=== PATIENT | female | born 1990 | race Caucasian/White ===

== ENCOUNTER 2016-09-30 18:19 | Emergency (ER) | payer BC ==
[2016-09-30 18:27] VITALS: RESP 18; TEMP 98.4
[2016-09-30] MEDS ORDERED: SODIUM CHLORIDE 0.9% 1,000 ML IV ONE (18:41)
[2016-09-30] MEDS ORDERED: LORazepam 2 MG/ML SYRINGE IV STA (18:42)
--- NOTE | 2016-09-30 18:46 | ED ---
Anxiety HPI - General Chief Complaint: Anxiety Stated Complaint: Hypertension Time Seen by Provider: 09/30/16 18:27 Source: EMS, RN notes reviewed Mode of arrival: EMS - History of Present Illness Initial Comments: Patient's 25-year-old female presents emergency room for evaluation of anxiety. Patient states that she drank about a pint of rum last night. Patient states was feeling off today and thought she was just hung over. Patient states while she was at dinner she had something spicy to eat and her heart began racing. Patient states that she went over to her work which is across the street and took her blood pressure and it read 156/115. Patient states she's never had blood pressure this high before. Patient states the high blood pressure gave her more anxiety and she began having chest pain. Patient states she called EMS. Patient states that the chest pain has subsided since it started. Patient states she thinks she is having anxiety attack. Patient states never had this happen to her before. Patient denies history of high blood pressure or heart problems. Patient states she felt short of breath during the incident but has subsided since. Patient denies nausea or vomiting. - Related Data Home Medications: Home Medications Medication Instructions Recorded Confirmed Loratadine [Claritin] 10 mg PO DAILY 09/30/16 09/30/16 Norgestimate-Ethinyl Estradiol 1 tab PO DAILY 09/30/16 09/30/16 [Sprintec 28 Day Tablet] Pantoprazole Sodium [Protonix] 20 mg PO DAILY 09/30/16 09/30/16 Previous Rx's Medication Instructions Recorded Azithromycin [Zithromax Z-pack] 250 mg PO DIRECTED #6 tab 09/30/16 Allergies/Adverse Reactions: Allergies Allergy/AdvReac Type Severity Reaction Status Date / Time No Known Allergies Allergy Verified 09/30/16 18:56 Review of Systems ROS Statement: Those systems with pertinent positive or pertinent negative responses have been documented in the HPI. ROS Other: All systems not noted in ROS Statement are negative. Past Medical History Past Medical History: No Reported History History of Any Multi-Drug Resistant Organisms: None Reported Past Surgical History: No Surgical Hx Reported Past Psychological History: Anxiety, Depression Smoking Status: Former smoker Past Alcohol Use History: Heavy Past Drug Use History: None Reported General Exam - General Exam Comments Initial Comments: Sitting in exam room, tearful but no acute distress. Limitations: no limitations General appearance: alert, in no apparent distress Head exam: Present: atraumatic, normocephalic, normal inspection Eye exam: Present: normal appearance Pupils: Present: normal accommodation ENT exam: Present: normal exam Neck exam: Present: normal inspection Respiratory exam: Present: normal lung sounds bilaterally. Absent: respiratory distress Cardiovascular Exam: Present: normal rhythm, tachycardia, normal heart sounds Extremities exam: Present: normal inspection Back exam: Present: normal inspection Neurological exam: Present: alert, oriented X3, CN II-XII intact, normal gait Psychiatric exam: Present: normal affect Skin exam: Present: warm, dry, intact, normal color. Absent: rash Course Vital Signs 09/30/16 09/30/16 18:21 20:55 Temperature 98.4 F Pulse Rate 109 H 78 Respiratory 18 18 Rate Blood Pressure 176/92 166/84 O2 Sat by Pulse 100 100 Oximetry Medical Decision Making - Medical Decision Making Patient is a 25-year-old female presents emergency room for evaluation of anxiety. Labs showed no acute findings. Chest x-ray incidentally noted for right lower lobe infiltrate. Patient be placed on antibiotics. Patient states she understands everything that was discussed with her. Return parameters discussed. Case discussed with Dr. Rebolledo. - Lab Data Result diagrams: 09/30/16 19:30 09/30/16 19:30 Lab Results 09/30/16 09/30/16 09/30/16 Range/Units 19:30 19:30 19:30 WBC 11.7 H (3.8-10.6) k/uL RBC 4.39 (3.80-5.40) m/uL Hgb 13.7 (11.4-16.0) gm/dL Hct 40.3 (34.0-46.0) % MCV 91.9 (80.0-100.0) fL MCH 31.2 (25.0-35.0) pg MCHC 33.9 (31.0-37.0) g/dL RDW 12.8 (11.5-15.5) % Plt Count 330 (150-450) k/uL Neutrophils % 78 % Lymphocytes % 16 % Monocytes % 4 % Eosinophils % 1 % Basophils % 1 % Neutrophils # 9.1 H (1.3-7.7) k/uL Lymphocytes # 1.9 (1.0-4.8) k/uL Monocytes # 0.4 (0-1.0) k/uL Eosinophils # 0.1 (0-0.7) k/uL Basophils # 0.1 (0-0.2) k/uL Sodium 142 (137-145) mmol/L Potassium 4.4 (3.5-5.1) mmol/L Chloride 105 (98-107) mmol/L Carbon Dioxide 23 (22-30) mmol/L Anion Gap 14 mmol/L BUN 14 (7-17) mg/dL Creatinine 0.65 (0.52-1.04) mg/dL Est GFR (MDRD) Af Amer >60 (>60 ml/min/1.73 sqM) Est GFR (MDRD) Non-Af >60 (>60 ml/min/1.73 sqM) Glucose 98 (74-99) mg/dL Calcium 9.5 (8.4-10.2) mg/dL Magnesium 1.4 L (1.6-2.3) mg/dL Total Bilirubin 0.5 (0.2-1.3) mg/dL AST 34 (14-36) U/L ALT 31 (9-52) U/L Alkaline Phosphatase 94 (38-126) U/L Total Protein 7.3 (6.3-8.2) g/dL Albumin 4.3 (3.5-5.0) g/dL Urine Color Urine Appearance (Clear) Urine pH (5.0-8.0) Ur Specific [place] (1.001-1.035) Urine Protein (Negative) Urine Glucose (UA) (Negative) Urine Ketones (Negative) Urine Blood (Negative) Urine Nitrate (Negative) Urine Bilirubin (Negative) Urine Urobilinogen (<2.0) mg/dL Ur Leukocyte Esterase (Negative) Urine HCG, Qual Not Detected (Not Detectd) 09/30/16 Range/Units 19:30 WBC (3.8-10.6) k/uL RBC (3.80-5.40) m/uL Hgb (11.4-16.0) gm/dL Hct (34.0-46.0) % MCV (80.0-100.0) fL MCH (25.0-35.0) pg MCHC (31.0-37.0) g/dL RDW (11.5-15.5) % Plt Count (150-450) k/uL Neutrophils % % Lymphocytes % % Monocytes % % Eosinophils % % Basophils % % Neutrophils # (1.3-7.7) k/uL Lymphocytes # (1.0-4.8) k/uL Monocytes # (0-1.0) k/uL Eosinophils # (0-0.7) k/uL Basophils # (0-0.2) k/uL Sodium (137-145) mmol/L Potassium (3.5-5.1) mmol/L Chloride (98-107) mmol/L Carbon Dioxide (22-30) mmol/L Anion Gap mmol/L BUN (7-17) mg/dL Creatinine (0.52-1.04) mg/dL Est GFR (MDRD) Af Amer (>60 ml/min/1.73 sqM) Est GFR (MDRD) Non-Af (>60 ml/min/1.73 sqM) Glucose (74-99) mg/dL Calcium (8.4-10.2) mg/dL Magnesium (1.6-2.3) mg/dL Total Bilirubin (0.2-1.3) mg/dL AST (14-36) U/L ALT (9-52) U/L Alkaline Phosphatase (38-126) U/L Total Protein (6.3-8.2) g/dL Albumin (3.5-5.0) g/dL Urine Color Light Yellow Urine Appearance Clear (Clear) Urine pH 6.0 (5.0-8.0) Ur Specific [place] 1.008 (1.001-1.035) Urine Protein Negative (Negative) Urine Glucose (UA) Negative (Negative) Urine Ketones Negative (Negative) Urine Blood Negative (Negative) Urine Nitrate Negative (Negative) Urine Bilirubin Negative (Negative) Urine Urobilinogen <2.0 (<2.0) mg/dL Ur Leukocyte Esterase Negative (Negative) Urine HCG, Qual (Not Detectd) 10/01/16 04:39. Normal sinus rhythm, ventricular rate 96 bpm, [place] interval 118 ms, QRS duration 74 ms, QT/QTc 326/411 ms, no ST elevations - Radiology Data Radiology results: report reviewed, image reviewed Disposition Clinical Impression: Acute anxiety, Right lower lobe pneumonia Disposition: HOME SELF-CARE Condition: Good Instructions: Generalized Anxiety Disorder (ED) Additional Instructions: Take antibiotics as directed. Please follow up with primary care provider in 24 -48 hours for reevaluation. If any new symptom arises or symptoms worsen, return to ER as soon as possible. Prescriptions: Azithromycin [Zithromax Z-pack] 250 mg PO DIRECTED #6 tab Referrals: Aj Chatman MD [Primary Care Provider] - 1-2 days Time of Disposition: 20:40
[2016-09-30 19:47] LABS: Appearance,Urine Clear (Clear); Bilirubin,Urine Negative (Negative); Glucose,Urine (UA) Negative (Negative); Ketones,Urine Negative (Negative); Leukocyte Esterase,Urine Negative (Negative); Nitrite,Urine Negative (Negative); Protein,Urine Negative (Negative); Specific Gravity,Urine 1.008 (1.001-1.035); UA Billing (MACRO vs. MICRO) CHEM; Urobilinogen,Urine <2.0 mg/dL (<2.0)
[2016-09-30 19:54] LABS: ALT 31 U/L (9-52); AST 34 U/L (14-36); Alkaline Phosphatase 94 U/L (38-126); Anion Gap 14 mmol/L; Blood Urea Nitrogen 14 mg/dL (7-17); Calcium 9.5 mg/dL (8.4-10.2); Carbon Dioxide 23 mmol/L (22-30); Chloride 105 mmol/L (98-107); Glucose 98 mg/dL (74-99); Magnesium 1.4 mg/dL (1.6-2.3); Non-African American GFR(MDRD) >60 (>60 ml/min/1.73 sqM); Potassium 4.4 mmol/L (3.5-5.1); Sodium 142 mmol/L (137-145); Total Bilirubin 0.5 mg/dL (0.2-1.3); Total Protein 7.3 g/dL (6.3-8.2)
[2016-09-30 19:56] LABS: Basophils # (A) 0.1 k/uL (0-0.2); Basophils % (A) 1 %; CH 30.9; CHCM 33.8; Eosinophils # (A) 0.1 k/uL (0-0.7); Eosinophils % (A) 1 %; HCT 40.3 % (34.0-46.0); HDW 2.06; HGB 13.7 gm/dL (11.4-16.0); Luc # (Auto) 0.14; Luc % (Auto) 1; Lymphocytes # (A) 1.9 k/uL (1.0-4.8); Lymphocytes % (A) 16 %; MCH 31.2 pg (25.0-35.0); MCHC 33.9 g/dL (31.0-37.0); MCV 91.9 fL (80.0-100.0); Mean Platelet Volume 6.9; Monocytes # (A) 0.4 k/uL (0-1.0); Monocytes % (A) 4 %; Neutrophils # (A) 9.1 k/uL (1.3-7.7); Neutrophils % (A) 78 %; RBC 4.39 m/uL (3.80-5.40); RDW 12.8 % (11.5-15.5); WBC 11.7 k/uL (3.8-10.6); WBC (Perox) 12.06
--- NOTE | 2016-09-30 20:16 | XR ---
EXAMINATION TYPE: XR chest 2V DATE OF EXAM: 09/30/2016 8:08 PM COMPARISON: NONE HISTORY: Pain TECHNIQUE: Frontal and lateral views of the chest are obtained. FINDINGS: Faint opacities are noted in the right lower lobe of lung and are suspicious for mild acti ve lung infiltrates. The cardiac silhouette size is within normal limits. The osseous structures a re intact. IMPRESSION: Suspected mild active infiltrates in the right lower lobe of lung.
[2016-09-30 20:59] VITALS: BP 166/84; PULSE 78
== END 2016-09-30 20:55 | disposition home or self-care (01) ==
LOC: EC 18:19
DX: F41.9 Anxiety disorder, unspecified (principal); J18.9 Pneumonia, unspecified organism; Z79.3 Long term (current) use of hormonal contraceptives; Z87.891 Personal history of nicotine dependence; Z79.899 Other long term (current) drug therapy
CPT/HCPCS: 96374; 99285; 36415; 93005; 80053; 83735; 85025; 81003; 81025; 71020; J2060

== ENCOUNTER 2018-12-15 12:58 | Inpatient (IN) | payer BC, OTHER ==
[2018-12-15] MEDS ORDERED: LORazepam 2 MG/ML INJ IV STA (13:24)
[2018-12-15] MEDS ORDERED: SODIUM CHLORIDE 0.9% 1,000 ML IV STA (13:24)
--- NOTE | 2018-12-15 13:30 | ED ---
General Adult HPI - General Source: patient, RN notes reviewed Mode of arrival: ambulatory Limitations: no limitations <Salvatore Jang - Last Filed: 12/15/18 15:33> <Gato Ryan - Last Filed: 12/15/18 15:53> - General Chief complaint: Arrhythmia/Palpitations Stated complaint: palpitations Time Seen by Provider: 12/15/18 13:19 - History of Present Illness Initial comments: Patient is a 28-year-old female with significant past medical history for hypertension, alcoholism, presented to the emergency room today with a chief complaint of wanting to detox from alcohol. She does admit that she's had some palpitations. States her last drink was approximately 8 PM last night. She states she did follow-up the family physician today was advised come here to the emergency room. Patient does admit to feeling nauseated. Admits to heart palpitations. States feels like her heart racing. Patient does admit that she noticed her blood pressures fluctuated today. She has been taking her blood pressure medicine. She states to Catapres earlier today along with her metoprolol. Patient denies any recent fever, chills, shortness of breath, chest pain, back pain, abdominal pain, vomiting, numbness or tingling, headaches or visual changes, or any other complaints. (Salvatore Jang) - Related Data Home Medications Medication Instructions Recorded Confirmed Norgestimate-Ethinyl Estradiol 1 tab PO DAILY 09/30/16 12/15/18 [Sprintec 28 Day Tablet] Hydrochlorothiazide [Hydrodiuril] 25 mg PO DAILY 12/15/18 12/15/18 Metoprolol Succinate (ER) [Toprol 50 mg PO BID 12/15/18 12/15/18 Xl] Sertraline [Zoloft] 100 mg PO DAILY 12/15/18 12/15/18 cloNIDine HCL [Catapres] 0.1 mg PO BID 12/15/18 12/15/18 Allergies Allergy/AdvReac Type Severity Reaction Status Date / Time No Known Allergies Allergy Verified 12/15/18 13:38 Review of Systems ROS Other: All systems not noted in ROS Statement are negative. <Salvatore Jang - Last Filed: 12/15/18 15:33> ROS Other: All systems not noted in ROS Statement are negative. <Gato Ryan - Last Filed: 12/15/18 15:53> ROS Statement: Those systems with pertinent positive or pertinent negative responses have been documented in the HPI. Past Medical History Past Medical History: No Reported History History of Any Multi-Drug Resistant Organisms: None Reported Past Surgical History: No Surgical Hx Reported Past Psychological History: Anxiety, Depression Smoking Status: Former smoker Past Alcohol Use History: Daily, Heavy Past Drug Use History: None Reported <Salvatore Jang - Last Filed: 12/15/18 15:33> General Exam Limitations: no limitations <aSlvatore Jang - Last Filed: 12/15/18 15:33> - General Exam Comments Initial Comments: General: The patient is awake and alert, in no distress, and does not appear acutely ill. Eye: There is normal conjunctiva bilaterally. No signs of icterus. Ears, nose, mouth and throat: There are moist mucous membranes and no oral lesions. Neck: The neck is supple, there is no tenderness or JVD. Cardiovascular: There is a regular rate and rhythm. No murmur, rub or gallop is appreciated. Respiratory: Lungs are clear to auscultation, respirations are non-labored, breath sounds are equal. No wheezes, stridor, rales, or rhonchi. Musculoskeletal: Normal ROM, no tenderness. Strength 5/5. Sensation intact. Pulses equal bilaterally 2+. Neurological: A&O x 3. CN II-XII intact, There are no obvious motor or sensory deficits. Coordination appears grossly intact. Speech is normal. Skin: Skin is warm and dry and no rashes or lesions are noted. Psychiatric: Cooperative, appropriate mood & affect, normal judgment. (Salvatore Jang) Course <Gato Ryan - Last Filed: 12/15/18 15:53> Vital Signs 12/15/18 13:06 Temperature 98.5 F Pulse Rate 111 H Respiratory 18 Rate Blood Pressure 154/99 O2 Sat by Pulse 98 Oximetry - Reevaluation(s) Reevaluation #1: 12/15/18 15:53 Case was discussed with Dr. Redding, who will admit covering for Dr. Beckham. (Gato Ryan) EKG Findings - EKG Comments: EKG Findings:: EKG performed it's 1324: Shows normal sinus rhythm at 99 bpm. [place] interval 152. QRS 94. QT/QTC 348/446. No acute ST changes. <Salvatore Jang - Last Filed: 12/15/18 15:33> Medical Decision Making - Lab Data Result diagrams: 12/15/18 13:45 12/15/18 13:45 <Salvatore Jang - Last Filed: 12/15/18 15:33> - Lab Data Result diagrams: 12/15/18 13:45 12/15/18 13:45 <Gato Ryan - Last Filed: 12/15/18 15:53> - Medical Decision Making Patient reexamined at this time shows no signs of distress. Patient resting comfortably. Patient's serum alcohol less than 10. Patient does admit last week was last night. Patient blood pressure has improved here in emergency room. She initially was worried about this. Patient was given Ativan here in the emergency room is feeling better at this time. Patient's liver enzymes are mildly elevated. Her magnesium was low at 1.2 was getting 2 g of magnesium started here in emergency room. Case discussed with attending physician Dr. Ryan who did discuss case with patient's primary doctor Dr. Beckham who did see the patient in the office today and sent her here to the emergency room. Case discussed with Dr. Redding who will admit the patient (Salvatore Jang) Case discussed with practitioner Salvatore. Chart reviewed. Case was discussed with Dr. Beckham who is familiar with this patient I would like her admitted. Dr. Redding has been paged. (Gato Ryan) - Lab Data Lab Results 12/15/18 12/15/18 12/15/18 Range/Units 13:45 13:45 13:45 WBC 8.5 (3.8-10.6) k/uL RBC 4.69 (3.80-5.40) m/uL Hgb 14.5 (11.4-16.0) gm/dL Hct 43.4 (34.0-46.0) % MCV 92.4 (80.0-100.0) fL MCH 30.8 (25.0-35.0) pg MCHC 33.4 (31.0-37.0) g/dL RDW 13.1 (11.5-15.5) % Plt Count 276 (150-450) k/uL Neutrophils % 65 % Lymphocytes % 25 % Monocytes % 4 % Eosinophils % 4 % Basophils % 1 % Neutrophils # 5.5 (1.3-7.7) k/uL Lymphocytes # 2.1 (1.0-4.8) k/uL Monocytes # 0.4 (0-1.0) k/uL Eosinophils # 0.3 (0-0.7) k/uL Basophils # 0.1 (0-0.2) k/uL Sodium 137 (137-145) mmol/L Potassium 3.6 (3.5-5.1) mmol/L Chloride 97 L (98-107) mmol/L Carbon Dioxide 25 (22-30) mmol/L Anion Gap 15 mmol/L BUN 7 (7-17) mg/dL Creatinine 0.42 L (0.52-1.04) mg/dL Est GFR (CKD-EPI)AfAm >90 (>60 ml/min/1.73 sqM) Est GFR (CKD-EPI)NonAf >90 (>60 ml/min/1.73 sqM) Glucose 106 H (74-99) mg/dL Calcium 10.1 (8.4-10.2) mg/dL Magnesium 1.2 L (1.6-2.3) mg/dL Total Bilirubin 1.2 (0.2-1.3) mg/dL AST 355 H (14-36) U/L ALT 184 H (9-52) U/L Alkaline Phosphatase 119 (38-126) U/L Total Creatine Kinase 49 (30-135) U/L CK-MB (CK-2) <0.2 (0.0-2.4) ng/mL CK-MB (CK-2) Rel Index Troponin I <0.012 (0.000-0.034) ng/mL Total Protein 8.0 (6.3-8.2) g/dL Albumin 4.9 (3.5-5.0) g/dL Urine Color Urine Appearance (Clear) Urine pH (5.0-8.0) Ur Specific [place] (1.001-1.035) Urine Protein (Negative) Urine Glucose (UA) (Negative) Urine Ketones (Negative) Urine Blood (Negative) Urine Nitrite (Negative) Urine Bilirubin (Negative) Urine Urobilinogen (<2.0) mg/dL Ur Leukocyte Esterase (Negative) Urine RBC (0-5) /hpf Urine WBC (0-5) /hpf Ur Squamous Epith Cells (0-4) /hpf Urine Bacteria (None) /hpf Urine Mucus (None) /hpf Urine HCG, Qual (Not Detectd) Serum Alcohol <10 mg/dL 12/15/18 12/15/18 Range/Units 14:31 14:31 WBC (3.8-10.6) k/uL RBC (3.80-5.40) m/uL Hgb (11.4-16.0) gm/dL Hct (34.0-46.0) % MCV (80.0-100.0) fL MCH (25.0-35.0) pg MCHC (31.0-37.0) g/dL RDW (11.5-15.5) % Plt Count (150-450) k/uL Neutrophils % % Lymphocytes % % Monocytes % % Eosinophils % % Basophils % % Neutrophils # (1.3-7.7) k/uL Lymphocytes # (1.0-4.8) k/uL Monocytes # (0-1.0) k/uL Eosinophils # (0-0.7) k/uL Basophils # (0-0.2) k/uL Sodium (137-145) mmol/L Potassium (3.5-5.1) mmol/L Chloride (98-107) mmol/L Carbon Dioxide (22-30) mmol/L Anion Gap mmol/L BUN (7-17) mg/dL Creatinine (0.52-1.04) mg/dL Est GFR (CKD-EPI)AfAm (>60 ml/min/1.73 sqM) Est GFR (CKD-EPI)NonAf (>60 ml/min/1.73 sqM) Glucose (74-99) mg/dL Calcium (8.4-10.2) mg/dL Magnesium (1.6-2.3) mg/dL Total Bilirubin (0.2-1.3) mg/dL AST (14-36) U/L ALT (9-52) U/L Alkaline Phosphatase (38-126) U/L Total Creatine Kinase (30-135) U/L CK-MB (CK-2) (0.0-2.4) ng/mL CK-MB (CK-2) Rel Index Troponin I (0.000-0.034) ng/mL Total Protein (6.3-8.2) g/dL Albumin (3.5-5.0) g/dL Urine Color Yellow Urine Appearance Clear (Clear) Urine pH 6.0 (5.0-8.0) Ur Specific [place] 1.008 (1.001-1.035) Urine Protein Negative (Negative) Urine Glucose (UA) Negative (Negative) Urine Ketones 1+ H (Negative) Urine Blood Trace H (Negative) Urine Nitrite Negative (Negative) Urine Bilirubin Negative (Negative) Urine Urobilinogen <2.0 (<2.0) mg/dL Ur Leukocyte Esterase Negative (Negative) Urine RBC 1 (0-5) /hpf Urine WBC 1 (0-5) /hpf Ur Squamous Epith Cells 1 (0-4) /hpf Urine Bacteria Rare H (None) /hpf Urine Mucus Rare H (None) /hpf Urine HCG, Qual Not Detected (Not Detectd) Serum Alcohol mg/dL Disposition Time of Disposition: 15:36 <Salvatore Jang - Last Filed: 12/15/18 15:33> <Gato Ryan - Last Filed: 12/15/18 15:53> Clinical Impression: Alcohol withdrawal, Hypomagnesemia Disposition: ADMITTED IP TO THIS HOSP Condition: Stable Referrals: Ricki Beckham MD [Primary Care Provider] - 1-2 days
[2018-12-15 14:11] LABS: Basophils # (A) 0.1 k/uL (0-0.2); Basophils % (A) 1 %; Eosinophils # (A) 0.3 k/uL (0-0.7); Eosinophils % (A) 4 %; HCT 43.4 % (34.0-46.0); HGB 14.5 gm/dL (11.4-16.0); Lymphocytes # (A) 2.1 k/uL (1.0-4.8); Lymphocytes % (A) 25 %; MCH 30.8 pg (25.0-35.0); MCHC 33.4 g/dL (31.0-37.0); MCV 92.4 fL (80.0-100.0); Mean Platelet Volume 7.6; Monocytes # (A) 0.4 k/uL (0-1.0); Monocytes % (A) 4 %; Neutrophils # (A) 5.5 k/uL (1.3-7.7); Neutrophils % (A) 65 %; Platelet Count 276 k/uL (150-450); RBC 4.69 m/uL (3.80-5.40); RDW 13.1 % (11.5-15.5); WBC 8.5 k/uL (3.8-10.6)
[2018-12-15 14:21] LABS: ALT 184 U/L (9-52); AST 355 U/L (14-36); Albumin 4.9 g/dL (3.5-5.0); Alcohol <10 mg/dL; Alkaline Phosphatase 119 U/L (38-126); Anion Gap 15 mmol/L; Blood Urea Nitrogen 7 mg/dL (7-17); Calcium 10.1 mg/dL (8.4-10.2); Carbon Dioxide 25 mmol/L (22-30); Chloride 97 mmol/L (98-107); Glucose 106 mg/dL (74-99); Magnesium 1.2 mg/dL (1.6-2.3); Potassium 3.6 mmol/L (3.5-5.1); Sodium 137 mmol/L (137-145); Total Bilirubin 1.2 mg/dL (0.2-1.3)
[2018-12-15 14:35] LABS: Creatine Kinase 49 U/L (30-135)
[2018-12-15 14:46] LABS: Creatine Kinase MB <0.2 ng/mL (0.0-2.4); Troponin I <0.012 ng/mL (0.000-0.034)
[2018-12-15 15:11] LABS: Appearance,Urine Clear (Clear); Bacteria,Urine Rare /hpf; Bilirubin,Urine Negative (Negative); Blood,Urine Trace (Negative); Color,Urine Yellow; Glucose,Urine (UA) Negative (Negative); Ketones,Urine 1+ (Negative); Leukocyte Esterase,Urine Negative (Negative); Mucus,Urine Rare /hpf; Nitrite,Urine Negative (Negative); Protein,Urine Negative (Negative); RBC,Urine 1 /hpf (0-5); Specific Gravity,Urine 1.008 (1.001-1.035); Squamous Epithelial Cell,Urine 1 /hpf (0-4); Urobilinogen,Urine <2.0 mg/dL (<2.0)
--- NOTE | 2018-12-15 15:12 | XR ---
EXAMINATION TYPE: XR chest 2V DATE OF EXAM: 12/15/2018 COMPARISON: Prior chest x-ray dated 09/30/2016 HISTORY: Palpitations TECHNIQUE: Frontal and lateral views of the chest are obtained. FINDINGS: There is no focal air space opacity, pleural effusion, or pneumothorax seen. The cardiac silhouette size is within normal limits. The osseous structures are intact. There are overlying car diac leads. Slight elevation of right hemidiaphragm, exam appears expiratory. Minimal strand-like den sities may be due to atelectasis or scarring. IMPRESSION: Suspect some subsegmental atelectasis. Follow-up as indicated.
[2018-12-15] MEDS ORDERED: LORazepam 2 MG/ML INJ IV PRN ×2 (15:32)
[2018-12-15] MEDS ORDERED: ONDANSETRON 4 MG/2 ML VIAL IVP PRN (15:37)
[2018-12-15] MEDS ORDERED: NALOXONE 0.4 MG/ML 1 ML VIAL IV PRN (15:37)
[2018-12-15] MEDS ORDERED: SODIUM CHLORIDE 0.9% 1,000 ML with MVI, ADULT NO.4 WITH VIT K 10 ML, THIAMINE 100 MG, F... IV ONE ×4 (16:00)
[2018-12-15] MEDS: MAGNESIUM SULFATE-D5W PMX 1 GM in DEXTROSE/WATER 1 100ML.BAG IVPB SCH ×2 (16:36→17:33)
[2018-12-15] MEDS: THIAMINE 100 MG TAB PO SCH (17:32)
[2018-12-15 18:05] VITALS: BMI 36.3
[2018-12-15] MEDS: LORazepam 2 MG/ML INJ IV PRN ×3 (18:19→23:51)
[2018-12-15] MEDS: METOPROLOL SUCCINATE (ER) 50 MG TAB.ER.24H PO SCH (20:15)
[2018-12-15] MEDS: cloNIDine HCL 0.1 MG TAB PO SCH (20:15)
[2018-12-16] MEDS: LORazepam 2 MG/ML INJ IV PRN ×2 (01:53→21:11)
[2018-12-16] MEDS ORDERED: NORGESTIMATE-ETHINYL ESTRADIOL 1 EACH TABLET PO SCH (09:00)
[2018-12-16 09:25] LABS: Basophils # (A) 0.1 k/uL (0-0.2); Basophils % (A) 2 %; Eosinophils # (A) 0.2 k/uL (0-0.7); Eosinophils % (A) 4 %; HCT 42.4 % (34.0-46.0); HGB 13.7 gm/dL (11.4-16.0); Lymphocytes # (A) 1.4 k/uL (1.0-4.8); Lymphocytes % (A) 34 %; MCH 30.9 pg (25.0-35.0); MCHC 32.3 g/dL (31.0-37.0); MCV 95.6 fL (80.0-100.0); Mean Platelet Volume 7.7; Monocytes # (A) 0.3 k/uL (0-1.0); Monocytes % (A) 6 %; Neutrophils # (A) 2.1 k/uL (1.3-7.7); Neutrophils % (A) 52 %; Platelet Count 247 k/uL (150-450); RBC 4.43 m/uL (3.80-5.40); WBC 4.1 k/uL (3.8-10.6)
[2018-12-16] MEDS: cloNIDine HCL 0.1 MG TAB PO SCH ×2 (09:25→21:10)
[2018-12-16] MEDS: SERTRALINE 100 MG TAB PO SCH (09:27)
[2018-12-16] MEDS: METOPROLOL SUCCINATE (ER) 50 MG TAB.ER.24H PO SCH ×2 (09:27→21:10)
[2018-12-16] MEDS: HYDROCHLOROTHIAZIDE 25 MG TAB PO SCH (09:27)
[2018-12-16 09:56] LABS: ALT 116 U/L (9-52); AST 132 U/L (14-36); Alkaline Phosphatase 81 U/L (38-126); Anion Gap 12 mmol/L; Blood Urea Nitrogen 5 mg/dL (7-17); Calcium 9.2 mg/dL (8.4-10.2); Carbon Dioxide 27 mmol/L (22-30); Chloride 103 mmol/L (98-107); Glucose 145 mg/dL (74-99); Potassium 3.6 mmol/L (3.5-5.1); Sodium 142 mmol/L (137-145); Total Bilirubin 0.9 mg/dL (0.2-1.3); Total Protein 6.7 g/dL (6.3-8.2)
--- NOTE | 2018-12-16 12:09 | P.HPIM ---
History of Present Illness H&P Date: 12/16/18 Chief Complaint: Alcohol withdrawal This is a 28-year-old female patient of Dr. Beckham. with past medical history of generalized anxiety disorder, recurrent depression, alcohol abuse for the past 5 years. Patient states that she has been told not to try to stop alc ohol on her own. Her last intake was yesterday. She states she can sometimes go fine all day without any alcohol intake but if the evenings that are still hard for her and she really wants to quit. She states her appetite is okay. She denies any nausea. She states she has some sweatiness and restlessness. She came into [facility] emergency center for evaluation. Blood pressure was elevated at 136/102, pulse ox 98% on room air, heart rate running in the 90s up to 111, afebrile. CBC is normal, BUN 7 and creatinine 0.4 to. Magnesium 1.2 and has been replaced. AST initially 355 and repeat this morning at 132, ALT 184 and repeat 116, alkaline phosphatase 81, troponin negative. Serum alcohol level was less than 10. Urinalysis was clear nitrate and leukoesterase negative. Review of Systems All systems: negative Constitutional: Reports sweats, Denies anorexia, Denies chills, Denies fatigue, Denies fever, Denies lethargy, Denies malaise, Denies poor appetite, Denies weight loss Eyes: denies blurred vision, denies pain Ears, nose, mouth and throat: Denies dysphagia, Denies headache, Denies sore throat, Denies vertigo Cardiovascular: Denies chest pain, Denies dyspnea on exertion, Denies edema, Denies leg edema, Denies shortness of breath, Denies syncope Respiratory: Denies cough, Denies cough with sputum, Denies dyspnea, Denies excessive sputum, Denies hemoptysis, Denies home oxygen, Denies wheezing Gastrointestinal: Denies abdominal pain, Denies diarrhea, Denies nausea, Denies vomiting Genitourinary: Denies dysuria, Denies hematuria, Denies urgency Musculoskeletal: Denies frequent falls, Denies gait dysfunction, Denies myalgias Integumentary: Denies pruritus, Denies rash, Denies wounds Neurological: Denies aphasia, Denies change in speech, Denies confusion, Denies numbness, Denies seizures, Denies weakness Psychiatric: Reports anxiety, Denies confusion, Denies depression Endocrine: Denies fatigue, Denies weight change Past Medical History Past Medical History: Hypertension Additional Past Medical History / Comment(s): anxiety, depression, etoh dependence History of Any Multi-Drug Resistant Organisms: None Reported Past Surgical History: No Surgical Hx Reported Past Psychological History: Anxiety, Depression Smoking Status: Never smoker Past Alcohol Use History: Daily, Heavy Additional Past Alcohol Use History / Comment(s): Patient is a lifelong nonsmoker. She drinks about a pint and a half of Bacardi rum daily for the past 5 years. She denies any alcohol use. She works as a nurse's aide. Past Drug Use History: None Reported - Past Family History Mother History Unknown: Yes Family Medical History: Hyperlipidemia Father History Unknown: Yes Additional Family Medical History / Comment(s): etoh abuse Medications and Allergies Home Medications Medication Instructions Recorded Confirmed Type Norgestimate-Ethinyl Estradiol 1 tab PO DAILY 09/30/16 12/15/18 History [Sprintec 28 Day Tablet] Hydrochlorothiazide [Hydrodiuril] 25 mg PO DAILY 12/15/18 12/15/18 History Metoprolol Succinate (ER) [Toprol 50 mg PO BID 12/15/18 12/15/18 History Xl] Sertraline [Zoloft] 100 mg PO DAILY 12/15/18 12/15/18 History cloNIDine HCL [Catapres] 0.1 mg PO BID 12/15/18 12/15/18 History Allergies Allergy/AdvReac Type Severity Reaction Status Date / Time No Known Allergies Allergy Verified 12/15/18 13:38 Physical Exam Vitals: Vital Signs Temp Pulse Pulse Resp BP BP BP 12/16/18 05:27 98 F 74 16 129/72 12/15/18 23:50 78 87/56 12/15/18 21:05 98.3 F 117 H 16 140/90 12/15/18 17:30 99 19 131/102 12/15/18 17:20 104 H 15 131/102 12/15/18 17:10 96 19 126/92 12/15/18 17:00 96 22 136/99 12/15/18 16:50 93 13 136/99 12/15/18 16:40 94 30 H 133/99 12/15/18 16:30 93 10 L 122/85 03/19/19 16:20 83 19 122/85 12/15/18 16:10 85 17 123/77 12/15/18 16:00 90 18 112/74 12/15/18 15:50 83 18 112/74 12/15/18 15:40 86 17 114/68 12/15/18 15:30 81 22 123/86 12/15/18 15:20 89 19 123/86 12/15/18 15:10 88 17 128/85 12/15/18 15:00 131/92 12/15/18 14:50 89 14 131/92 12/15/18 14:40 131/92 12/15/18 14:30 97 17 128/94 12/15/18 14:20 90 18 128/94 12/15/18 14:10 89 19 131/92 12/15/18 14:00 95 24 136/102 12/15/18 13:50 94 15 136/102 12/15/18 13:06 98.5 F 111 H 18 154/99 Pulse Ox 12/16/18 05:27 95 12/15/18 23:50 12/15/18 21:05 95 12/15/18 17:30 96 12/15/18 17:20 96 12/15/18 17:10 96 12/15/18 17:00 96 12/15/18 16:50 96 12/15/18 16:40 97 12/15/18 16:30 96 12/15/18 16:20 95 12/15/18 16:10 96 12/15/18 16:00 95 12/15/18 15:50 95 12/15/18 15:40 96 12/15/18 15:30 95 12/15/18 15:20 94 L 12/15/18 15:10 94 L 12/15/18 15:00 12/15/18 14:50 96 12/15/18 14:40 12/15/18 14:30 96 12/15/18 14:20 94 L 12/15/18 14:10 95 12/15/18 14:00 95 12/15/18 13:50 97 12/15/18 13:06 98 Intake and Output 12/15/18 12/16/18 12/16/18 22:59 06:59 14:59 Intake Total 410 580 Balance 410 580 Intake: Amount of Fluid Infused ( 110 ml) Intake, IV Titration 300 Amount Sodium Chloride 0.9% 1, 300 000 ml @ 100 mls/hr IV . Q10H7M ONE with Mvi, Adult No.4 with Vit K 10 ml with Thiamine 100 mg with Folic Acid 1 mg Rx#: [id number] Oral 580 Other: # Voids 3 Gen: This is a 28-year-old female. She is resting in bed and appears to be comfortable and in no acute distress. HEENT: Head is atraumatic, normocephalic. Pupils equal, round. Sclerae is anicteric. NECK: Supple. No JVD. No lymphadenopathy. No thyromegaly. LUNGS: Clear to auscultation. No wheezes or rhonchi. No intercostal retractions. HEART: Regular rate and rhythm. No murmur. ABDOMEN: Soft. Bowel sounds are present. No masses. No tenderness. EXTREMITIES: No pedal edema. No calf tenderness. NEUROLOGICAL: Patient is awake, alert and oriented x3. Cranial nerves 2 through 12 are grossly intact. Results CBC & Chem 7: 12/16/18 08:38 12/16/18 08:38 Labs: Abnormal Lab Results - Last 24 Hours (Table) 12/15/18 12/15/18 12/16/18 Range/Units 13:45 14:31 08:38 Chloride 97 L (98-107) mmol/L BUN 5 L (7-17) mg/dL Creatinine 0.42 L 0.45 L (0.52-1.04) mg/dL Glucose 106 H 145 H (74-99) mg/dL Magnesium 1.2 L (1.6-2.3) mg/dL AST 355 H 132 H (14-36) U/L ALT 184 H 116 H (9-52) U/L Urine Ketones 1+ H (Negative) Urine Blood Trace H (Negative) Urine Bacteria Rare H (None) /hpf Urine Mucus Rare H (None) /hpf Thrombosis Risk Factor Assmnt - DVT/VTE Prophylaxis DVT/VTE Prophylaxis: Mechanical Prophylaxis ordered - Choose All That Apply Any of the Below Risk Factors Present?: No Other Risk Factors: No Thrombosis Risk Factor Assessment Level: Very Low Risk Assessment and Plan Plan: 1. Alcohol withdrawal in a patient with history of alcohol abuse with past 5 years. Patient has been on the Ativan protocol and this will be switched over to Librium 25 mg 3 times daily and we will plan to taper. Continue Catapres 0.1 mg twice daily. Continue thiamine 100 mg twice daily. Social work consult regarding options for substance abuse rehab. 2. Generalized anxiety disorder. Ativan 1 mg every 2 hours as needed available. Continue Zoloft and Librium. 3. Recurrent depression. Continue Zoloft 100 mg daily. 4. Hypertension. Continue hydrochlorothiazide 25 mg daily, Catapres 0.1 mg twice daily. 5. DVT prophylaxis. SCDs and CHRISTY dias. Patient will be admitted to the hospital for a minimum of 2 night stay. Discharge plan: Tomorrow Impression and plan of care have been directed as dictated by the signing physician. Romy Wei nurse practitioner acting as scribe for signing physician.
[2018-12-16] MEDS: MULTIVITAMINS, THERA 1 EACH TAB PO SCH (12:25)
[2018-12-16] MEDS: THIAMINE 100 MG TAB PO SCH ×2 (12:25→18:20)
[2018-12-16] MEDS: chlordiazePOXIDE 25 MG CAP PO SCH ×3 (12:25→23:18)
--- NOTE | 2018-12-16 15:31 | ECHOF ---
Referral Reason:LVF MEASUREMENTS -------- HEIGHT: 165.1 cm WEIGHT: 99.3 kg BP: RVIDd: 2.9 cm (< 3.3) IVSd: 1.0 cm (0.6 - 1.1) LVIDd: 4.4 cm (3.9 - 5.3) LVPWd: 1.1 cm (0.6 - 1.1) IVSs: 1.8 cm LVIDs: 2.1 cm LVPWs: 1.9 cm LAESV Index (A-L): 17.32 ml/m Ao Diam: 2.9 cm (2.0 - 3.7) AV Cusp: 2.3 cm (1.5 - 2.6) LA Diam: 3.3 cm (2.7 - 3.8) EPSS: 0.4 cm MV E Artur: 0.94 m/s MV DecT: 244 ms MV A Artur: 0.57 m/s MV E/A Ratio: 1.63 RAP: 5.00 mmHg RVSP: 25.95 mmHg MV EF SLOPE: 146.90 mm/s (70 - 150) MV EXCURSION: 1.73 cm (> 18.000) FINDINGS -------- Sinus rhythm. This was a technically good study. The left ventricular size is normal. Left ventricular wall thickness is normal. Overall left vent ricular systolic function is normal with, an EF between 55 - 60 %. The right ventricle is normal in size. The left atrial size is normal. The right atrium is normal in size. The aortic valve is trileaflet and appears structurally normal. Mrcw-zx-fvjezobc mitral regurgitation is present. Mild tricuspid regurgitation present. The right ventricular systolic pressure, as measured by Doppl er, is 25.95mmHg. There is no pulmonic regurgitation present. The aortic root size is normal. Normal inferior vena cava with normal inspiratory collapse consistent with estimated right atrial pre ssure of 5 mmHg. There is no pericardial effusion. CONCLUSIONS -------- 1. Sinus rhythm. 2. This was a technically good study. 3. The left ventricular size is normal. 4. Left ventricular wall thickness is normal. 5. Overall left ventricular systolic function is normal with, an EF between 55 - 60 %. 6. The right ventricle is normal in size. 7. The left atrial size is normal. 8. The right atrium is normal in size. 9. The aortic valve is trileaflet and appears structurally normal. 10. Atab-fu-dnojqrgx mitral regurgitation is present. 11. Mild tricuspid regurgitation present. 12. The right ventricular systolic pressure, as measured by Doppler, is 25.95mmHg. 13. There is no pulmonic regurgitation present. 14. The aortic root size is normal. 15. Normal inferior vena cava with normal inspiratory collapse consistent with estimated right atrial pressure of 5 mmHg. 16. There is no pericardial effusion. GRAPHICS SPECIALIST: Mary Carmen Pierson RDCS
[2018-12-17] MEDS ORDERED: FAMOTIDINE 20 MG TAB PO SCH (09:00)
[2018-12-17] MEDS: HYDROCHLOROTHIAZIDE 25 MG TAB PO SCH (09:32)
[2018-12-17] MEDS: SERTRALINE 100 MG TAB PO SCH (09:32)
[2018-12-17] MEDS: chlordiazePOXIDE 25 MG CAP PO SCH (09:32)
[2018-12-17] MEDS: cloNIDine HCL 0.1 MG TAB PO SCH (09:32)
[2018-12-17] MEDS: METOPROLOL SUCCINATE (ER) 50 MG TAB.ER.24H PO SCH (09:32)
[2018-12-17 12:48] VITALS: BP 124/86; PULSE 63; RESP 16; TEMP 98.6
[2018-12-17] MEDS: MULTIVITAMINS, THERA 1 EACH TAB PO SCH (13:10)
[2018-12-17] MEDS: THIAMINE 100 MG TAB PO SCH (13:10)
--- NOTE | 2018-12-17 14:39 | P.DS ---
Providers Date of admission: 12/16/18 09:08 Expected date of discharge: 12/17/18 Attending physician: Stan Redding Primary care physician: Ricki Beckham [facility] Course: This is a 28-year-old female patient of Dr. Beckham. with past medical history of generalized anxiety disorder, recurrent depression, alcohol abuse for the past 5 years. Patient states that she has been told not to try to stop alcohol on her own. Her last intake was yesterday. She states she can sometimes go fine all day without any alcohol intake but if the evenings that are still hard for her and she really wants to quit. She states her appetite is okay. She denies any nausea. She states she has some sweatiness and restlessness. She came into [facility] emergency center for evaluation. Blood pressure was elevated at 136/102, pulse ox 98% on room air, heart rate running in the 90s up to 111, afebrile. CBC is normal, BUN 7 and creatinine 0.4 to. Magnesium 1.2 and has been replaced. AST initially 355 and repeat this morning at 132, ALT 184 and repeat 116, alkaline phosphatase 81, troponin negative. Serum alcohol level was less than 10. Urinalysis was clear nitrate and leukoesterase negative. 12/17: Patient is been afebrile, heart rate in the 60s and 70s, blood pressure 124/86, pulse ox 96% on room air. No repeat labs for today. Patient has been provided a list of substance abuse rehab options. Her plan is to go home to her mother's and make plan for treatment. Patient will be prescribed Librium for 4 days on tapering dose. MAPS was completed and Patient will be discharged home today in stable condition. Discharge diagnoses: 1. Alcohol withdrawal in a patient with history of alcohol abuse with past 5 years. 2. Generalized anxiety disorder. 3. Recurrent depression. 4. Hypertension. Discharge plan: home Impression and plan of care have been directed as dictated by the signing physician. Romy Wei nurse practitioner acting as scribe for signing physician. Patient Condition at Discharge: Good Plan - Discharge Summary Discharge Rx Participant: Yes New Discharge Prescriptions: New chlordiazePOXIDE HCl [Librium] 25 mg PO BID #6 cap Multivitamins, Thera [Multivitamin (formulary)] 1 each PO DAILY@1200 tab Thiamine [Vitamin B-1] 100 mg PO BID@1200,1700 tab Continue Norgestimate-Ethinyl Estradiol [Sprintec 28 Day Tablet] 1 tab PO DAILY Hydrochlorothiazide [Hydrodiuril] 25 mg PO DAILY cloNIDine HCL [Catapres] 0.1 mg PO BID Sertraline [Zoloft] 100 mg PO DAILY Metoprolol Succinate (ER) [Toprol XL] 50 mg PO BID Discharge Medication List Norgestimate-Ethinyl Estradiol [Sprintec 28 Day Tablet] 1 tab PO DAILY 09/30/16 [History] Hydrochlorothiazide [Hydrodiuril] 25 mg PO DAILY 12/15/18 [History] Metoprolol Succinate (ER) [Toprol XL] 50 mg PO BID 12/15/18 [History] Sertraline [Zoloft] 100 mg PO DAILY 12/15/18 [History] cloNIDine HCL [Catapres] 0.1 mg PO BID 12/15/18 [History] Multivitamins, Thera [Multivitamin (formulary)] 1 each PO DAILY@1200 tab 12/17/18 [Rx] Thiamine [Vitamin B-1] 100 mg PO BID@1200,1700 tab 12/17/18 [Rx] chlordiazePOXIDE HCl [Librium] 25 mg PO BID #6 cap 12/17/18 [Rx] Follow up Appointment(s)/Referral(s): Ricki Beckham MD [Primary Care Provider] - 12/24/18 3:15 pm Patient Instructions/Handouts: Chlordiazepoxide (By mouth), Abuse of Alcohol (DC), At-Risk Alcohol Use (DC), Alcohol Withdrawal (DC), Alcohol Dependence (ED) Discharge Disposition: HOME SELF-CARE
== END 2018-12-17 14:00 | disposition home or self-care (01) | DRG 897 ==
LOC: EC 12:58 → 3NMEDONC 15:32 → OBSVTOIN 12-16 09:08
PROVIDERS: ADMIT Internal Medicine; ATTEND Internal Medicine
DX: F10.239 Alcohol dependence with withdrawal, unspecified (principal); F33.9 Major depressive disorder, recurrent, unspecified; F41.1 Generalized anxiety disorder; I10 Essential (primary) hypertension; Z79.899 Other long term (current) drug therapy; Z87.891 Personal history of nicotine dependence; E83.42 Hypomagnesemia; Y90.0 Blood alcohol level of less than 20 mg/100 ml
CPT/HCPCS: 36415; 71046; 80053; 80320; 81001; 81025; 82550; 82553; 83735; 84484; 85025; 93005; 93306; 96361; 96374; 96375; 99285

== ENCOUNTER → 2019-05-21 | Outpatient (CLI) | payer OTHER ==
--- NOTE | 2019-05-21 10:57 | US ---
EXAMINATION TYPE: US transvaginal DATE OF EXAM: 05/21/2019 COMPARISON: NONE CLINICAL HISTORY: R10.2 PELVIC PAIN. TECHNIQUE: Transvaginal (TV). Date of LMP: 04/22/2019 EXAM MEASUREMENTS: Uterus: 7.7 x 3.5 x 4.5 cm Endometrial Stripe: 0.4 cm Left Ovary: 2.3 x 1.1 x 1.3 cm 1. Uterus: Anteverted wnl 2. Endometrium: wnl 3. Right Ovary: Obscured by overlying bowel gas 4. Left Ovary: wnl 5. Bilateral Adnexa: wnl 6. Posterior cul-de-sac: Small amount of fluid seen. This can be physiologic IMPRESSION: 1. Pelvic ultrasound is unremarkable.
[2019-05-21 11:18] LABS: Basophils # (A) 0.1 k/uL (0-0.2); Basophils % (A) 1 %; Eosinophils # (A) 0.2 k/uL (0-0.7); Eosinophils % (A) 2 %; HCT 42.4 % (34.0-46.0); HGB 14.2 gm/dL (11.4-16.0); Lymphocytes # (A) 2.5 k/uL (1.0-4.8); Lymphocytes % (A) 27 %; MCH 28.9 pg (25.0-35.0); MCHC 33.4 g/dL (31.0-37.0); MCV 86.5 fL (80.0-100.0); Monocytes # (A) 0.4 k/uL (0-1.0); Monocytes % (A) 5 %; Neutrophils # (A) 5.8 k/uL (1.3-7.7); Neutrophils % (A) 64 %; Platelet Count 342 k/uL (150-450); RDW 14.7 % (11.5-15.5); WBC 9.1 k/uL (3.8-10.6)
[2019-05-21 17:21] LABS: African American GFR (CKD) 135.7 (60.0-200.0); Albumin 4.7 g/dL (3.80-4.90); Albumin/Globulin Ratio 2.24 (1.60-3.17); Anion Gap 9.6 mmol/L (4.00-12.00); Calcium 10.1 mg/dL (8.7-10.3); Carbon Dioxide 25.4 mmol/L (21.6-31.8); Globulin 2.1 g/dL (1.6-3.3); Magnesium 1.6 mg/dL (1.5-2.4); Non-African American GFR(CKD) 117.1 (60.0-200.0); Potassium 4.7 mmol/L (3.5-5.5); Total Bilirubin 0.5 mg/dL (0.3-1.2); Total Protein 6.8 g/dL (6.2-8.2)
[2019-05-21 21:57] LABS: Hemoglobin A1C 5.4 % (4.0-6.0)
== END | disposition home or self-care (01) ==
LOC: RADUSWWP 10:06
PROVIDERS: ATTEND Internal Medicine
DX: R10.2 Pelvic and perineal pain (principal); I10 Essential (primary) hypertension; E78.5 Hyperlipidemia, unspecified; F41.9 Anxiety disorder, unspecified
CPT/HCPCS: 36415; 76830; 80053; 82150; 83036; 83690; 83735; 84439; 84443; 85025

== ENCOUNTER → 2021-06-21 | Outpatient (CLI) | payer OTHER ==
--- NOTE | 2021-06-21 15:42 | XR ---
EXAMINATION TYPE: XR knee complete RT DATE OF EXAM: 06/21/2021 COMPARISON: NONE HISTORY: Pain TECHNIQUE: Three views are submitted. FINDINGS: Joint spaces are preserved. Osseous structures are intact. No acute fracture seen. There is some s clerosis of the posterior cortex of the tibia. IMPRESSION: 1. No acute fracture or dislocation. 2. Increased sclerosis involving the posterior margin of the proximal tibia recommend dedicated tibia series.
== END | disposition home or self-care (01) ==
LOC: RADXRMAIN 14:45
PROVIDERS: ATTEND Internal Medicine
DX: M89.8X6 Other specified disorders of bone, lower leg (principal)

== ENCOUNTER 2023-01-10 09:17 | Emergency (ER) | payer BC, OTHER ==
[2023-01-10] MEDS ORDERED: KETOROLAC 15 MG/ML 1 ML VIAL IM STA (09:43)
--- NOTE | 2023-01-10 10:12 | XR ---
EXAMINATION TYPE: XR KUB DATE OF EXAM: 01/10/2023 COMPARISON: NONE HISTORY: Pain TECHNIQUE: One view abdominal series FINDINGS: The osseous structures are intact. The bowel gas pattern is nonspecific. Lung bases are clear. IMPRESSION: 1. Nonspecific abdomen.
--- NOTE | 2023-01-10 10:27 | ED ---
Abdominal Pain HPI - General Chief Complaint: Abdominal Pain Stated Complaint: Covid +, abdominal pain Time Seen by Provider: 01/10/23 09:26 Source: patient, RN notes reviewed Mode of arrival: ambulatory Limitations: no limitations - History of Present Illness Initial Comments: This is a 32-year-old female who presents to the emergency department for abd ominal pain. Reports 2-3 days of constipation. States that yesterday she started to feel pain in her upper abdomen that has traveled to the suprapubic region. States that this happens any time she is constipated. She took MiraLAX with no relief. States that the pain is keeping her up at night and she is unable to sleep as a result. Denies any burning with urination or blood in her urine, however she is on her period and cannot be certain of this. Also denies any nausea or vomiting. She has had feelings of pain like this before, however she has never been constipated as a result. Denies any fevers, chills, sore throat, cough, dyspnea, chest pain, palpitations, nausea, vomiting, diarrhea, back pain, or headaches. MD Complaint: abdominal pain - Related Data Home Medications Medication Instructions Recorded Confirmed norgestimate-ethinyl estradioL 1 tab PO DAILY 09/30/16 12/15/18 [Sprintec 28 Day Tablet] Metoprolol Succinate (ER) [Toprol 50 mg PO BID 12/15/18 12/15/18 XL] Sertraline [Zoloft] 100 mg PO DAILY 12/15/18 12/15/18 cloNIDine HCL [Catapres] 0.1 mg PO BID 12/15/18 12/15/18 hydroCHLOROthiazide [Hydrodiuril] 25 mg PO DAILY 12/15/18 12/15/18 Previous Rx's Medication Instructions Recorded Multivitamins, Thera [Multivitamin 1 each PO DAILY@1200 tab 12/17/18 (formulary)] Thiamine [Vitamin B-1] 100 mg PO BID@1200,1700 tab 12/17/18 chlordiazePOXIDE HCl [Librium] 25 mg PO BID #6 cap 12/17/18 HYDROcodone/APAP 5-325MG [Aulander 1 tab PO Q6HR PRN 3 Days #12 tab 01/10/23 5-325] Ketorolac [Toradol] 10 mg PO Q6HR PRN #12 tab 01/10/23 Allergies Allergy/AdvReac Type Severity Reaction Status Date / Time No Known Allergies Allergy Verified 01/10/23 09:23 Review of Systems ROS Statement: Those systems with pertinent positive or pertinent negative responses have been documented in the HPI. ROS Other: All systems not noted in ROS Statement are negative. Past Medical History Past Medical History: Hypertension Additional Past Medical History / Comment(s): anxiety, depression, etoh dependence History of Any Multi-Drug Resistant Organisms: None Reported Past Surgical History: No Surgical Hx Reported Past Psychological History: Anxiety, Depression Smoking Status: Vaper Past Alcohol Use History: Daily, Heavy Past Drug Use History: None Reported - Past Family History Mother History Unknown: Yes Family Medical History: Hyperlipidemia Father History Unknown: Yes Additional Family Medical History / Comment(s): etoh abuse General Exam Limitations: no limitations General appearance: alert, in no apparent distress Head exam: Present: atraumatic, normocephalic, normal inspection Respiratory exam: Present: normal lung sounds bilaterally. Absent: respiratory distress, wheezes, rales, rhonchi, stridor Cardiovascular Exam: Present: regular rate, normal rhythm, normal heart sounds. Absent: systolic murmur, diastolic murmur, rubs, gallop, clicks GI/Abdominal exam: Present: soft, tenderness (Suprapubic), normal bowel sounds. Absent: distended Neurological exam: Present: alert, oriented X3, CN II-XII intact Psychiatric exam: Present: normal affect, normal mood Skin exam: Present: warm, dry, intact, normal color. Absent: rash Course Vital Signs 01/10/23 01/10/23 01/10/23 09:19 11:23 12:22 Temperature 97.9 F Pulse Rate 72 80 61 Respiratory 18 18 16 Rate Blood Pressure 127/85 121/71 112/73 O2 Sat by Pulse 99 99 97 Oximetry 01/10/23 13:03 Temperature 98.0 F Pulse Rate 70 Respiratory 18 Rate Blood Pressure 115/64 O2 Sat by Pulse 97 Oximetry Medical Decision Making - Medical Decision Making This is a 32-year-old female who presents to the emergency department for abdominal pain and constipation. Was pt. sent in by a medical professional or institution? @ -No Did you speak to anyone other than the patient for history? @ -Her mother Did you review nursing and triage notes? @ -Yes, and I agree, it is accurate with regards to the patient's symptoms. Were old charts reviewed? @ -No Differential Diagnosis? @ -Differential Abdominal Pain Women: Appendicitis, Cholecystitis, diverticulosis, ischemic bowel, pancreatitis, hepatitis, UTI, gastroenteritis, AAA, incarcerated hernia, bowel obstruction, constipation, inflammatory bowel, hepatitis, peptic ulcer disease, splenic i nfarction, perforated viscus, vulvitis, ovarian torsion, PID, kidney stone, placenta abruption, this is not meant to be an all-inclusive list X-rays interpreted by me (1pt min.)? @ -My interpretation of the [facility] x-ray reveals no free air or dilation of the bowel loops. CT interpreted by me (1pt min.)? @ -CT scan of the abdomen and pelvis obtained. My interpretation reveals bowel wall thickening around the descending and sigmoid colon. There is no evidence of free air. What testing was considered but not performed? (CT, X-rays, U/S, labs)? Why? @ -None What meds were considered but not given? Why? @ -None Did you discuss the management of the patient with other professionals? @ -No Did you reconcile home meds? @ -No Was smoking cessation discussed for >3mins.? @ -No Was critical care preformed (if so, how long)? @ -No Were there social determinants of health that impacted care today? How? (Homelessness, low income, unemployed, alcoholism, drug addiction, transportation, low edu. Level, literacy, decrease access to med. care, senior living, rehab)? @ -No Was there de-escalation of care discussed even if they declined? (Discuss DNR or withdrawal of care, Hospice)? @ -No What co-morbidities impacted this encounter? (DM, HTN, Smoking, COPD, CAD, Cancer, CVA, Hep., AIDS, mental health diagnosis, sleep apnea, morbid obesity)? @ -None Was patient admitted / discharged? @ -Discharged. Urinalysis reveals no signs of infection. [facility] x-ray reveals no acute findings. Given her concern for symptoms being worse than they have been prior and because constipation is uncommon for her, CT scan of the abdomen and pelvis obtained. Findings consistent with a nonspecific colitis. Advised the patient that this is most likely inflammatory in nature. She did have improvement in symptoms with the Toradol and Aulander. Rx for Aulander and Toradol provided with dosing instructions reviewed. She is instructed to take the Toradol with Tylenol and avoid taking it with any over the counter antiinflammatories such as Ibuprofen. I also advised that there is no evidence of constipation on her computed tomography scan and she should avoid using [id number] constipation medication, as this could promote further irritation/inflammation. Also advised she follow a soft bland diet over the next couple of days to reduce the likelihood of contributing to the inflammation. Undiagnosed new problem with uncertain prognosis? @ -None Drug Therapy requiring intensive monitoring for toxicity (Heparin, Nitro, Insulin, Cardizem)? @ -None Were any procedures done? @ -None Diagnosis/symptom? @ -Colitis Acute, or Chronic, or Acute on Chronic? @ -Acute Uncomplicated (without systemic symptoms) or Complicated (systemic symptoms)? @ Uncomplicated Side effects of treatment? @ -None Exacerbation, Progression, or Severe Exacerbation] @ -Not applicable Poses a threat to life or bodily function? @ -No Return precautions reviewed in depth, the patient is instructed to return to the emergency department with any new, worsening, or concerning symptoms. Patient verbalized understanding. This case was discussed in detail with the attending ED physician, Dr. Limon. Presentation, findings, and treatment plan discussed in detail as well. - Lab Data Lab Results 01/10/23 Range/Units 10:46 Urine Color Yellow Urine Appearance Clear (Clear) Urine pH 6.0 (5.0-8.0) Ur Specific Dickinson 1.014 (1.001-1.035) Urine Protein Negative (Negative) Urine Glucose (UA) Negative (Negative) Urine Ketones Negative (Negative) Urine Blood Large H (Negative) Urine Nitrite Negative (Negative) Urine Bilirubin Negative (Negative) Urine Urobilinogen <2.0 (<2.0) mg/dL Ur Leukocyte Esterase Negative (Negative) Urine RBC 1 (0-5) /hpf Urine WBC 2 (0-5) /hpf Ur Squamous Epith Cells 1 (0-4) /hpf Urine Mucus Occasional H (None) /hpf - Radiology Data Radiology results: report reviewed, image reviewed Disposition Clinical Impression: Colitis Disposition: HOME SELF-CARE Instructions (If sedation given, give patient instructions): Colitis (ED) Additional Instructions: Return to the emergency department with any new, worsening, or concerning symptoms. Take the Toradol every 6 hours to help with the pain and inflammation. You may take this with Tylenol. Do not take any other [id number]-iqo-jreeepv anti-inflammatories such as ibuprofen with the Toradol. Take the Aulander sparingly when your pain is the most severe and be aware that it may be sedating. Follow a bland diet and avoid any constipation medication for the meantime to avoid further irritating your bowels. Contact gastroenterology as listed below for a follow-up appointment and reevaluation of ongoing symptoms. Follow up with your primary care provider in 1-2 days. Prescriptions: HYDROcodone/APAP 5-325MG [Aulander 5-325] 1 tab PO Q6HR PRN 3 Days #12 tab PRN Reason: Pain Ketorolac [Toradol] 10 mg PO Q6HR PRN #12 tab PRN Reason: Pain Is patient prescribed a controlled substance at d/c from ED?: Yes When asked, does pt state using other controlled substances?: No If prescribed controlled substance>3 days was MAPS reviewed?: Prescribed <3 Days Referrals: Ricki Beckham MD [Primary Care Provider] - 1-2 days Gabriela Botello MD [STAFF PHYSICIAN] - 1-2 days
[2023-01-10] MEDS ORDERED: ALPRAZolam 1 MG TAB PO STA (10:34)
[2023-01-10] MEDS ORDERED: NA PHOS,M-B/NA PHOS,DI-BA 133 ML ENEMA RECTAL ONE (10:35)
[2023-01-10 11:33] LABS: Appearance,Urine Clear (Clear); Bilirubin,Urine Negative (Negative); Blood,Urine Large (Negative); Color,Urine Yellow; Glucose,Urine (UA) Negative (Negative); Ketones,Urine Negative (Negative); Leukocyte Esterase,Urine Negative (Negative); Mucus,Urine Occasional /hpf; Nitrite,Urine Negative (Negative); Protein,Urine Negative (Negative); RBC,Urine 1 /hpf (0-5); Specific Gravity,Urine 1.014 (1.001-1.035); Squamous Epithelial Cell,Urine 1 /hpf (0-4); Urobilinogen,Urine <2.0 mg/dL (<2.0); WBC,Urine 2 /hpf (0-5)
--- NOTE | 2023-01-10 12:00 | CT ---
EXAMINATION TYPE: CT abdomen pelvis wo con CT DLP: 505.3 mGycm, Automated exposure control for dose reduction was used. DATE OF EXAM: 01/10/2023 11:45 AM COMPARISON: [facility] 01/10/2023 CLINICAL INDICATION:Female, 32 years old with history of Abdominal pain, acute, nonlocalized; pelvic pain, Covid positive TECHNIQUE: Standard CT of the abdomen and pelvis without IV or oral contrast. Lack of IV or oral co ntrast limits evaluation of solid and hollow organ viscera. Coronal and sagittal reformats were perfo rmed. FINDINGS: LOWER CHEST: Unremarkable ABDOMEN LIVER: Unremarkable noncontrast appearance. GALLBLADDER AND BILE DUCTS: Unremarkable. PANCREAS: Unremarkable noncontrast appearance. SPLEEN: Unremarkable noncontrast appearance. ADRENAL GLANDS: Unremarkable noncontrast appearance. KIDNEYS AND URETERS: No evidence of hydronephrosis or renal calculus. PELVIS BLADDER: Unremarkable REPRODUCTIVE: Unremarkable. ABDOMEN & PELVIS STOMACH AND BOWEL: Stomach and duodenum are unremarkable. There is circumferential wall thickening wi th surrounding fat stranding involving the distal descending colon and proximal sigmoid colon. No per icolonic abscess. No evidence of bowel obstruction. The appendix is within normal limits. No pneumato sis. PERITONEUM/RETROPERITONEUM: No evidence of pneumoperitoneum. Small amount of free fluid in posterior within the left paracolic gutter and pelvis. VASCULATURE: No evidence of aortic aneurysm. MUSCULOSKELETAL: No acute osseous abnormalities LYMPH NODES: No gross evidence for lymphadenopathy. SOFT TISSUE/ABDOMINAL WALL: Unremarkable IMPRESSION: Findings most consistent with a nonspecific colitis involving the distal descending colon and proxima l sigmoid colon. This is likely from an infectious/inflammatory process. No pericolonic abscess. Ther e is associated small amount of free fluid.
[2023-01-10] MEDS ORDERED: methylPREDNISolone SOD SUCCI 125 MG/2 ML VIAL IM ONE (12:31)
[2023-01-10] MEDS ORDERED: HYDROcodone/APAP 5-325MG 1 EACH TAB PO STA (12:31)
[2023-01-10 13:04] VITALS: BP 115/64; PULSE 70; RESP 18; TEMP 98
== END 2023-01-10 13:04 | disposition home or self-care (01) ==
LOC: EC 09:17
DX: K52.9 Noninfective gastroenteritis and colitis, unspecified (principal); I10 Essential (primary) hypertension; F41.9 Anxiety disorder, unspecified; F32.A Depression, unspecified; F17.290 Nicotine dependence, other tobacco product, uncomplicated; Z79.899 Other long term (current) drug therapy
CPT/HCPCS: 81001; 74018; 74176; 99284; 96372 ×2; J2930; J1885

== ENCOUNTER 2023-03-05 11:06 | Day surgery (SDC) | payer BC ==
[2023-03-03 16:40] VITALS: BMI 27.4
[~2023-03-05 11:06] MED LIST: LACTATED RINGERS 1,000 ML IV SCH; LIDOCAINE 1% (10MG/ML) FOR IV START INTRADERMA PRN; ONDANSETRON 4 MG/2 ML VIAL IVP PRN
[2023-03-05 12:29] VITALS: TEMP 97.7
[2023-03-05] MEDS ORDERED: PROPOFOL 10 MG/ML 20 ML VIAL IV ONE (12:36)
--- NOTE | 2023-03-05 12:56 | P.PCN ---
Date of Procedure: 03/05/23 Procedure(s) Performed: BRIEF HISTORY: Patient is a 32-year-old pleasant white female scheduled for an elective colonoscopy as a part of evaluation of chronic intermittent diarrhea with rectal bleeding. She had a severe episode, of severe lower abdominal pain and rectal bleeding and went to the emergency room and had a CT of the abdomen and pelvis done that showed acute colitis. She was treated th antibiotics and symptoms resolved. She continues to have intermittent diarrhea for 2-3 loose watery bowel movements daily but no bleeding. PROCEDURE PERFORMED: Colonoscopy with random biopsy. PREOPERATIVE Diagnosis Intermittent lower abdominal pain and Chronic diarrhea IV sedation per Anesthesia. PROCEDURE: After informed consent was obtained, the patient, was brought into the endoscopy unit. IV sedation was administered by Anesthesia under continuous monitoring. Digital rectal examination was normal. Initially the Olympus CF-160 flexible video colonoscope was then inserted in the rectum, gradually advanced into the cecum without any difficulty. Careful examination was performed as the scope was gradually being withdrawn. Ileocecal valve and the appendiceal orifice were visualized and appeared normal. Prep was excellent. Terminal ileum was intubated which appeared entirely normal. Mucosa of the cecum, ascending colon, transverse colon, descending colon, sigmoid colon, and rectum appeared normal. Retroflexion was performed in the rectum and no lesions were seen. Random biop sies were done from ascending and descending colon to rule out microscopic/collagenous colitis. The patient tolerated the procedure well. IMPRESSION: Normal-appearing colon from rectum to cecum with no evidence of colitis or colorectal neoplasia . RECOMMENDATIONS: Findings of this examination were discussed with the rosette as well as her family. She was advised to follow with the biopsy results. Use [id number] Imodium as needed for the diarrhea. .
[2023-03-05 13:19] VITALS: BP 107/67; PULSE 62; RESP 18
== END 2023-03-05 13:46 | disposition home or self-care (01) ==
LOC: ORWHC2ENDO 11:06
PROVIDERS: ATTEND Internal Medicine Gastroenterology
DX: K52.9 Noninfective gastroenteritis and colitis, unspecified (principal); K62.5 Hemorrhage of anus and rectum; Z79.899 Other long term (current) drug therapy; I10 Essential (primary) hypertension; E78.5 Hyperlipidemia, unspecified; F17.290 Nicotine dependence, other tobacco product, uncomplicated
CPT/HCPCS: 81025; 88305; 45380; J2704